=== PATIENT | male | born 1930 | race Caucasian/White ===

== ENCOUNTER 2019-01-13 20:03 | Inpatient (IN) | payer MEDICARE, BC ==
[2019-01-13 20:54] LABS: URINE BLOOD (Dip) POC 1+ (NEGATIVE); URINE GLUCOSE (Dip) POC Negative (NEGATIVE); URINE KETONES (Dip) POC Negative (NEGATIVE); URINE LEUKOCYTE EST (Dip) POC Negative (NEGATIVE); URINE NITRITE (Dip) POC Negative (NEGATIVE); URINE TOTAL PROTEIN POC Negative (NEGATIVE)
[2019-01-13 21:01] LABS: ADD MAN DIFF? NO
[2019-01-13 21:03] LABS: BASOPHILS % 0.6 % (0.0-2.0); EOSINOPHILS # 0.2 10^3/ul (0.0-0.5); EOSINOPHILS % 4.3 % (0.0-7.0); HEMATOCRIT 34.5 % (42.0-52.0); LYMPHOCYTES # 1.5 10^3/ul (0.8-2.9); LYMPHOCYTES % 29.8 % (15.0-51.0); MEAN CORPUSCULAR HEMOGLOBIN 27.2 pg (29.0-33.0); MEAN CORPUSCULAR HGB CONC 31.9 g/dl (32.0-37.0); MEAN CORPUSCULAR VOLUME 85.2 fl (82.0-101.0); MEAN PLATELET VOLUME 10.5 fl (7.4-10.4); MONOCYTE # 0.6 10^3/ul (0.3-0.9); MONOCYTES % 11.9 % (0.0-11.0); NEUTROPHIL # 2.6 10^3/ul (1.6-7.5); NEUTROPHILS % 53.2 % (39.0-77.0); PLATELET COUNT 128 10^3/UL (140-415); RED BLOOD COUNT 4.05 10^6/ul (4.70-6.10); RED CELL DISTRIBUTION WIDTH 13.8 % (11.5-14.5)
[2019-01-13 21:03] LABS: WHITE BLOOD COUNT 4.9 10^3/ul (4.8-10.8)
[2019-01-13 21:21] LABS: ALANINE AMINOTRANSFERASE 23 IU/L (13-69); ALBUMIN 4.4 g/dl (3.3-4.9); ALBUMIN/GLOBULIN RATIO 1.57; ALKALINE PHOSPHATASE 39 IU/L (42-121); ANION GAP 10 (5-13); ASPARTATE AMINO TRANSFERASE 25 IU/L (15-46); BLOOD UREA NITROGEN 28 mg/dl (7-20); CARBON DIOXIDE 30 mmol/L (21-31); CHLORIDE 103 mmol/L (97-110); CREATININE 1.15 mg/dl (0.61-1.24); GLUCOSE 115 mg/dl (70-220); LIPASE 51 U/L (23-300); POTASSIUM 3.6 mmol/L (3.5-5.1); SODIUM 143 mmol/L (135-144); TOTAL PROTEIN 7.2 g/dl (6.1-8.1)
[2019-01-13] MEDS: hydrALAzine 20 MG INJ IV (22:20)
[2019-01-13 23:27] LABS: PROSTATE SPECIFIC ANTIGEN 83.3 ng/ml (0.0-4.0)
[2019-01-14] MEDS ORDERED: HYDROCODONE/APAP (5/325) TAB PO ×2 (01:00)
[2019-01-14] MEDS ORDERED: ALBUTEROL/IPRATROPIUM (NEB) 3 ML AMP HHN (01:00)
[2019-01-14] MEDS ORDERED: NACL 0.9% 3 ML SYG IV (01:00)
[2019-01-14] MEDS ORDERED: ACETAMINOPHEN 325 MG TAB PO (01:00)
[2019-01-14] MEDS ORDERED: ONDANSETRON 4 MG INJ IV (01:00)
[2019-01-14 05:45] LABS: ADD MAN DIFF? NO
[2019-01-14 05:50] LABS: BASOPHILS % 0.4 % (0.0-2.0); EOSINOPHILS # 0.2 10^3/ul (0.0-0.5); EOSINOPHILS % 3.3 % (0.0-7.0); HEMATOCRIT 33.6 % (42.0-52.0); HEMOGLOBIN 10.8 g/dl (14.0-18.0); LYMPHOCYTES # 1.1 10^3/ul (0.8-2.9); LYMPHOCYTES % 22.7 % (15.0-51.0); MEAN CORPUSCULAR HEMOGLOBIN 27.1 pg (29.0-33.0); MEAN CORPUSCULAR HGB CONC 32.1 g/dl (32.0-37.0); MEAN CORPUSCULAR VOLUME 84.2 fl (82.0-101.0); MEAN PLATELET VOLUME 11.7 fl (7.4-10.4); MONOCYTE # 0.6 10^3/ul (0.3-0.9); MONOCYTES % 12.4 % (0.0-11.0); NEUTROPHILS % 60.8 % (39.0-77.0); PLATELET COUNT 137 10^3/UL (140-415); POSITIVE DIFF @See below; RED BLOOD COUNT 3.99 10^6/ul (4.70-6.10); RED CELL DISTRIBUTION WIDTH 13.8 % (11.5-14.5)
[2019-01-14 05:50] LABS: WHITE BLOOD COUNT 4.9 10^3/ul (4.8-10.8)
[2019-01-14 06:06] LABS: ALANINE AMINOTRANSFERASE 22 IU/L (13-69); ALBUMIN 3.7 g/dl (3.3-4.9); ALBUMIN/GLOBULIN RATIO 1.42; ALKALINE PHOSPHATASE 34 IU/L (42-121); ANION GAP 8 (5-13); ASPARTATE AMINO TRANSFERASE 19 IU/L (15-46); BILIRUBIN,INDIRECT 0.9 mg/dl (0-1.1); BILIRUBIN,TOTAL 0.9 mg/dl (0.2-1.3); BLOOD UREA NITROGEN 26 mg/dl (7-20); CALCIUM 9.9 mg/dl (8.4-10.2); CARBON DIOXIDE 30 mmol/L (21-31); CHLORIDE 107 mmol/L (97-110); CREATININE 0.88 mg/dl (0.61-1.24); GLUCOSE 109 mg/dl (70-220); MAGNESIUM 1.6 mg/dl (1.7-2.5); PHOSPHORUS 4.7 mg/dl (2.5-4.9); POTASSIUM 3.3 mmol/L (3.5-5.1); SODIUM 145 mmol/L (135-144); TOTAL PROTEIN 6.3 g/dl (6.1-8.1)
[2019-01-14] MEDS: POTASSIUM CHLORIDE (SR) 20 MEQ TAB PO (08:09)
[2019-01-14] MEDS: FINASTERIDE 5 MG TAB PO (08:10)
[2019-01-14] MEDS: FUROSEMIDE 40 MG TAB PO (08:11)
[2019-01-14] MEDS: TIMOLOL 0.5% 5 ML OPH BOTH EYES ×2 (08:12→20:13)
[2019-01-14] MEDS: LOSARTAN 50 MG TAB PO (08:12)
[2019-01-14] MEDS: AMLODIPINE 5 MG TAB PO ×2 (10:15→20:14)
[2019-01-14] MEDS: MAGNESIUM SULFATE 2 GM/50 ML 50 ML IVPB (12:50)
[2019-01-14] MEDS: hydrALAzine 20 MG INJ IV ×2 (14:46→20:14)
[2019-01-14] MEDS: TAMSULOSIN (SR) 0.4 MG CAP PO (20:13)
[2019-01-14] MEDS: LATANOPROST 0.005% 2.5 ML OPH BOTH EYES (20:22)
[2019-01-15 05:40] LABS: ADD MAN DIFF? NO
[2019-01-15 05:45] LABS: WHITE BLOOD COUNT 5.2 10^3/ul (4.8-10.8)
[2019-01-15 05:45] LABS: BASOPHILS % 0.2 % (0.0-2.0); EOSINOPHILS # 0.2 10^3/ul (0.0-0.5); EOSINOPHILS % 3.9 % (0.0-7.0); HEMATOCRIT 34.7 % (42.0-52.0); HEMOGLOBIN 11.2 g/dl (14.0-18.0); LYMPHOCYTES # 1.3 10^3/ul (0.8-2.9); LYMPHOCYTES % 24.4 % (15.0-51.0); MEAN CORPUSCULAR HEMOGLOBIN 27.1 pg (29.0-33.0); MEAN CORPUSCULAR HGB CONC 32.3 g/dl (32.0-37.0); MEAN PLATELET VOLUME 11.9 fl (7.4-10.4); MONOCYTE # 0.6 10^3/ul (0.3-0.9); MONOCYTES % 10.9 % (0.0-11.0); NEUTROPHIL # 3.1 10^3/ul (1.6-7.5); NEUTROPHILS % 60.4 % (39.0-77.0); PLATELET COUNT 134 10^3/UL (140-415); RED BLOOD COUNT 4.13 10^6/ul (4.70-6.10)
[2019-01-15 06:05] LABS: ANION GAP 9 (5-13); BLOOD UREA NITROGEN 27 mg/dl (7-20); CALCIUM 9.9 mg/dl (8.4-10.2); CARBON DIOXIDE 29 mmol/L (21-31); CHLORIDE 104 mmol/L (97-110); CREATININE 0.76 mg/dl (0.61-1.24); GLUCOSE 128 mg/dl (70-220); MAGNESIUM 1.8 mg/dl (1.7-2.5); PHOSPHORUS 4.2 mg/dl (2.5-4.9); POTASSIUM 3.6 mmol/L (3.5-5.1); SODIUM 142 mmol/L (135-144)
[2019-01-15] MEDS: TIMOLOL 0.5% 5 ML OPH BOTH EYES ×2 (08:48→20:02)
[2019-01-15] MEDS: BRIMONIDINE 0.15% 5 ML OPH BOTH EYES ×2 (08:51→16:43)
[2019-01-15] MEDS: FUROSEMIDE 40 MG TAB PO (08:52)
[2019-01-15] MEDS: AMLODIPINE 5 MG TAB PO ×2 (08:53→20:03)
[2019-01-15] MEDS: FINASTERIDE 5 MG TAB PO (08:53)
[2019-01-15] MEDS: LOSARTAN 50 MG TAB PO (08:54)
[2019-01-15] MEDS: TAMSULOSIN (SR) 0.4 MG CAP PO (20:03)
[2019-01-15] MEDS: LATANOPROST 0.005% 2.5 ML OPH BOTH EYES (20:07)
== END 2019-01-15 20:27 | disposition home or self-care (01) | DRG 723 ==
LOC: 2NE 22:44 → E/R 20:03
DX: C61 Malignant neoplasm of prostate (principal); N13.2 Hydronephrosis with renal and ureteral calculous obstruction; N13.8 Other obstructive and reflux uropathy; E83.42 Hypomagnesemia; N40.1 Benign prostatic hyperplasia with lower urinary tract symptoms; I10 Essential (primary) hypertension; E78.5 Hyperlipidemia, unspecified; I16.0 Hypertensive urgency; M19.90 Unspecified osteoarthritis, unspecified site; E87.6 Hypokalemia; R97.21 Rising PSA following treatment for malignant neoplasm of prostate
CPT/HCPCS: 36415; 74176; 76705; 80048; 80053; 81003; 83690; 83735; 84100; 84153; 84154; 85025; 87086; 93005; 96374; 97116; 97161; 97530; 99285-25

== ENCOUNTER 2019-02-26 12:07 | Inpatient (IN) | payer MEDICARE, BC ==
[2019-02-26] MEDS: CEFTRIAXONE 1 GM/50 ML (PMX) 50 ML IVPB ×2 (12:46→16:33)
[2019-02-26] MEDS: SODIUM CHLORIDE 0.9% 1L BAG IV* (12:46)
[2019-02-26] MEDS: IBUPROFEN 600 MG TAB PO (12:47)
[2019-02-26] MEDS ORDERED: DOCUSATE SODIUM 100 MG CAP PO (15:30)
[2019-02-26] MEDS ORDERED: ONDANSETRON 4 MG INJ IV (15:30)
[2019-02-26] MEDS ORDERED: ZOLPIDEM 5 MG TAB PO (15:30)
[2019-02-26] MEDS ORDERED: NACL 0.9% 3 ML SYG IV (15:30)
[2019-02-26] MEDS: SOD CHLORIDE 0.9% 1,000 ML IV (16:34)
[2019-02-26] MEDS: LATANOPROST 0.005% 2.5 ML OPH BOTH EYES (21:15)
[2019-02-26] MEDS: TIMOLOL 0.5% 5 ML OPH BOTH EYES (21:16)
[2019-02-26] MEDS: BRIMONIDINE 0.15% 5 ML OPH BOTH EYES (21:16)
[2019-02-27] MEDS: SOD CHLORIDE 0.9% 1,000 ML IV (01:56)
[2019-02-27] MEDS: BRIMONIDINE 0.15% 5 ML OPH BOTH EYES ×3 (06:07→21:20)
[2019-02-27] MEDS: TIMOLOL 0.5% 5 ML OPH BOTH EYES ×2 (09:00→21:19)
[2019-02-27] MEDS: BICALUTAMIDE 50 MG TAB PO (09:00)
[2019-02-27] MEDS: TAMSULOSIN (SR) 0.4 MG CAP PO (09:01)
[2019-02-27] MEDS: FINASTERIDE 5 MG TAB PO (09:01)
[2019-02-27] MEDS: CHOLECALCIFEROL 2,000 UNIT CAP PO (09:01)
[2019-02-27] MEDS: MAGNESIUM SULFATE 4 GM/100 ML 100 ML IVPB (12:09)
[2019-02-27] MEDS: BALSAM PERU/CASTOR OIL 60 GM TUBE TOP ×2 (12:10→21:19)
[2019-02-27] MEDS: CEFTRIAXONE 1 GM/50 ML (PMX) 50 ML IVPB (16:09)
[2019-02-27] MEDS: LATANOPROST 0.005% 2.5 ML OPH BOTH EYES (21:24)
[2019-02-28] MEDS ORDERED: VANCOMYCIN IV PER PHARMACY XX (04:00)
[2019-02-28] MEDS: VANCOMYCIN 1.25 GM/NS 250 ML 250 ML IVPB (04:45)
[2019-02-28] MEDS: BRIMONIDINE 0.15% 5 ML OPH BOTH EYES ×3 (06:03→21:27)
[2019-02-28] MEDS: FINASTERIDE 5 MG TAB PO (09:14)
[2019-02-28] MEDS: TAMSULOSIN (SR) 0.4 MG CAP PO (09:14)
[2019-02-28] MEDS: TIMOLOL 0.5% 5 ML OPH BOTH EYES ×2 (09:15→21:27)
[2019-02-28] MEDS: CHOLECALCIFEROL 2,000 UNIT CAP PO (09:15)
[2019-02-28] MEDS: BALSAM PERU/CASTOR OIL 60 GM TUBE TOP ×2 (09:16→21:27)
[2019-02-28] MEDS: BICALUTAMIDE 50 MG TAB PO (10:39)
[2019-02-28] MEDS: LATANOPROST 0.005% 2.5 ML OPH BOTH EYES (21:28)
[2019-03-01] MEDS: VANCOMYCIN 1 GM 250 ML IVPB (05:16)
[2019-03-01] MEDS: BRIMONIDINE 0.15% 5 ML OPH BOTH EYES ×3 (05:17→22:06)
[2019-03-01] MEDS: CHOLECALCIFEROL 2,000 UNIT CAP PO (08:11)
[2019-03-01] MEDS: TIMOLOL 0.5% 5 ML OPH BOTH EYES ×2 (08:12→22:06)
[2019-03-01] MEDS: FINASTERIDE 5 MG TAB PO (08:12)
[2019-03-01] MEDS: TAMSULOSIN (SR) 0.4 MG CAP PO (08:12)
[2019-03-01] MEDS: BICALUTAMIDE 50 MG TAB PO (08:13)
[2019-03-01] MEDS: BALSAM PERU/CASTOR OIL 60 GM TUBE TOP ×2 (08:18→22:06)
[2019-03-01] MEDS: MEGESTROL (40 MG/ML) 10ML CUP PO ×2 (09:00→22:10)
[2019-03-01] MEDS ORDERED: LOSARTAN 50 MG TAB PO (13:30)
[2019-03-01] MEDS: MULTIVITAMINS THERAPEUTIC TAB PO (14:29)
[2019-03-01] MEDS: LOSARTAN 25 MG TAB PO (14:31)
[2019-03-01] MEDS: LATANOPROST 0.005% 2.5 ML OPH BOTH EYES (21:00)
[2019-03-01] MEDS: hydrALAzine 20 MG INJ IV (21:51)
[2019-03-02] MEDS: hydrALAzine 20 MG INJ IV (02:12)
[2019-03-02] MEDS: morphine 2 MG INJ IV (02:53)
[2019-03-02] MEDS: VANCOMYCIN 1 GM 250 ML IVPB (05:34)
[2019-03-02] MEDS: BRIMONIDINE 0.15% 5 ML OPH BOTH EYES ×3 (07:05→22:27)
[2019-03-02] MEDS: LOSARTAN 25 MG TAB PO (09:49)
[2019-03-02] MEDS: CHOLECALCIFEROL 2,000 UNIT CAP PO (09:49)
[2019-03-02] MEDS: MEGESTROL (40 MG/ML) 10ML CUP PO ×2 (09:49→22:28)
[2019-03-02] MEDS: FINASTERIDE 5 MG TAB PO (09:49)
[2019-03-02] MEDS: MULTIVITAMINS THERAPEUTIC TAB PO (09:49)
[2019-03-02] MEDS: TAMSULOSIN (SR) 0.4 MG CAP PO ×2 (09:49→22:28)
[2019-03-02] MEDS: TIMOLOL 0.5% 5 ML OPH BOTH EYES ×2 (09:51→22:27)
[2019-03-02] MEDS: BICALUTAMIDE 50 MG TAB PO (09:51)
[2019-03-02] MEDS: BALSAM PERU/CASTOR OIL 60 GM TUBE TOP ×2 (09:52→22:35)
[2019-03-02] MEDS: LATANOPROST 0.005% 2.5 ML OPH BOTH EYES (21:00)
[2019-03-02] MEDS: HYDROCODONE/APAP (5/325) TAB PO (22:43)
[2019-03-03] MEDS: VANCOMYCIN 750 MG (PMX) 250 ML IVPB (05:45)
[2019-03-03] MEDS: BRIMONIDINE 0.15% 5 ML OPH BOTH EYES ×3 (05:46→23:41)
[2019-03-03] MEDS: TIMOLOL 0.5% 5 ML OPH BOTH EYES ×2 (09:23→23:40)
[2019-03-03] MEDS: MEGESTROL (40 MG/ML) 10ML CUP PO ×2 (09:23→23:39)
[2019-03-03] MEDS: MULTIVITAMINS THERAPEUTIC TAB PO (09:24)
[2019-03-03] MEDS: LOSARTAN 25 MG TAB PO (09:24)
[2019-03-03] MEDS: FINASTERIDE 5 MG TAB PO (09:24)
[2019-03-03] MEDS: CHOLECALCIFEROL 2,000 UNIT CAP PO (09:24)
[2019-03-03] MEDS: TAMSULOSIN (SR) 0.4 MG CAP PO ×2 (09:25→23:38)
[2019-03-03] MEDS: BALSAM PERU/CASTOR OIL 60 GM TUBE TOP ×2 (09:25→23:42)
[2019-03-03] MEDS: BICALUTAMIDE 50 MG TAB PO (09:29)
[2019-03-03] MEDS: RIFAMPIN 300 MG CAP PO (16:48)
[2019-03-03] MEDS: MUPIROCIN 2% 15 GM CR TOP ×2 (16:49→23:40)
[2019-03-03] MEDS: ACETAMINOPHEN 325 MG TAB PO (18:25)
[2019-03-03] MEDS: LATANOPROST 0.005% 2.5 ML OPH BOTH EYES (21:00)
[2019-03-03] MEDS: HYDROCODONE/APAP (5/325) TAB PO (23:39)
[2019-03-04] MEDS: SULFAMETHOXAZOLE IVPB ×4 (00:32→22:47)
[2019-03-04] MEDS: TRIMETHOPRIM IVPB ×4 (00:32→22:47)
[2019-03-04] MEDS: DEXTROSE IVPB ×4 (00:32→22:47)
[2019-03-04] MEDS: BRIMONIDINE 0.15% 5 ML OPH BOTH EYES ×3 (06:23→21:45)
[2019-03-04] MEDS: MEGESTROL (40 MG/ML) 10ML CUP PO ×2 (09:06→21:47)
[2019-03-04] MEDS: MULTIVITAMINS THERAPEUTIC TAB PO (09:06)
[2019-03-04] MEDS: TAMSULOSIN (SR) 0.4 MG CAP PO ×2 (09:06→21:44)
[2019-03-04] MEDS: LOSARTAN 25 MG TAB PO (09:06)
[2019-03-04] MEDS: CHOLECALCIFEROL 2,000 UNIT CAP PO (09:06)
[2019-03-04] MEDS: RIFAMPIN 300 MG CAP PO (09:07)
[2019-03-04] MEDS: DOCUSATE SODIUM 100 MG CAP PO (09:07)
[2019-03-04] MEDS: FINASTERIDE 5 MG TAB PO (09:08)
[2019-03-04] MEDS: TIMOLOL 0.5% 5 ML OPH BOTH EYES ×2 (09:08→21:45)
[2019-03-04] MEDS: MUPIROCIN 2% 15 GM CR TOP ×2 (09:09→21:45)
[2019-03-04] MEDS: BALSAM PERU/CASTOR OIL 60 GM TUBE TOP ×2 (09:09→21:46)
[2019-03-04] MEDS: ENOXAPARIN 30 MG/0.3 ML SYG SC (09:12)
[2019-03-04] MEDS: CEFEPIME 1GM/50 ML (PMX) 50 ML IVPB ×2 (14:19→21:45)
[2019-03-04] MEDS: ACETAMINOPHEN 325 MG TAB PO (14:44)
[2019-03-04] MEDS: HYDROCODONE/APAP (5/325) TAB PO (18:08)
[2019-03-04] MEDS: LATANOPROST 0.005% 2.5 ML OPH BOTH EYES ×2 (21:00→22:47)
[2019-03-05] MEDS: TRIMETHOPRIM IVPB ×3 (06:17→22:21)
[2019-03-05] MEDS: HYDROCODONE/APAP (5/325) TAB PO (06:17)
[2019-03-05] MEDS: SULFAMETHOXAZOLE IVPB ×3 (06:17→22:21)
[2019-03-05] MEDS: DEXTROSE IVPB ×3 (06:17→22:21)
[2019-03-05] MEDS: BRIMONIDINE 0.15% 5 ML OPH BOTH EYES ×3 (06:18→22:20)
[2019-03-05] MEDS: CEFEPIME 1GM/50 ML (PMX) 50 ML IVPB ×2 (09:05→19:56)
[2019-03-05] MEDS: CHOLECALCIFEROL 2,000 UNIT CAP PO (09:07)
[2019-03-05] MEDS: FINASTERIDE 5 MG TAB PO (09:07)
[2019-03-05] MEDS: LOSARTAN 25 MG TAB PO (09:07)
[2019-03-05] MEDS: DOCUSATE SODIUM 100 MG CAP PO (09:07)
[2019-03-05] MEDS: TAMSULOSIN (SR) 0.4 MG CAP PO ×2 (09:07→19:59)
[2019-03-05] MEDS: MULTIVITAMINS THERAPEUTIC TAB PO (09:07)
[2019-03-05] MEDS: RIFAMPIN 300 MG CAP PO (09:08)
[2019-03-05] MEDS: MEGESTROL (40 MG/ML) 10ML CUP PO ×2 (09:08→19:57)
[2019-03-05] MEDS: ENOXAPARIN 40 MG/0.4 ML SYG SC (09:10)
[2019-03-05] MEDS: MUPIROCIN 2% 15 GM CR TOP ×2 (09:11→19:59)
[2019-03-05] MEDS: TIMOLOL 0.5% 5 ML OPH BOTH EYES ×2 (09:11→19:58)
[2019-03-05] MEDS: BALSAM PERU/CASTOR OIL 60 GM TUBE TOP ×2 (09:12→20:00)
[2019-03-05] MEDS: MAGNESIUM HYDROXIDE 30ML CUP PO ×2 (16:16→19:57)
[2019-03-05] MEDS: BISACODYL (EC) 5 MG TAB PO (19:57)
[2019-03-05] MEDS: LATANOPROST 0.005% 2.5 ML OPH BOTH EYES (19:59)
[2019-03-06] MEDS: DEXTROSE IVPB ×3 (05:51→22:33)
[2019-03-06] MEDS: BRIMONIDINE 0.15% 5 ML OPH BOTH EYES ×3 (05:51→22:14)
[2019-03-06] MEDS: TRIMETHOPRIM IVPB ×3 (05:51→22:33)
[2019-03-06] MEDS: SULFAMETHOXAZOLE IVPB ×3 (05:51→22:33)
[2019-03-06] MEDS: HYDROCODONE/APAP (5/325) TAB PO (05:56)
[2019-03-06] MEDS: MAGNESIUM HYDROXIDE 30ML CUP PO ×2 (09:06→21:00)
[2019-03-06] MEDS: CEFEPIME 1GM/50 ML (PMX) 50 ML IVPB ×2 (09:06→22:13)
[2019-03-06] MEDS: MEGESTROL (40 MG/ML) 10ML CUP PO ×2 (09:07→22:13)
[2019-03-06] MEDS: BALSAM PERU/CASTOR OIL 60 GM TUBE TOP ×2 (09:07→22:13)
[2019-03-06] MEDS: MUPIROCIN 2% 15 GM CR TOP ×2 (09:07→22:13)
[2019-03-06] MEDS: CHOLECALCIFEROL 2,000 UNIT CAP PO (09:08)
[2019-03-06] MEDS: FINASTERIDE 5 MG TAB PO (09:08)
[2019-03-06] MEDS: LOSARTAN 25 MG TAB PO (09:08)
[2019-03-06] MEDS: RIFAMPIN 300 MG CAP PO (09:08)
[2019-03-06] MEDS: TAMSULOSIN (SR) 0.4 MG CAP PO ×2 (09:08→22:12)
[2019-03-06] MEDS: MULTIVITAMINS THERAPEUTIC TAB PO (09:09)
[2019-03-06] MEDS: TIMOLOL 0.5% 5 ML OPH BOTH EYES ×2 (09:14→22:12)
[2019-03-06] MEDS: ENOXAPARIN 40 MG/0.4 ML SYG SC (09:17)
[2019-03-06] MEDS: LATANOPROST 0.005% 2.5 ML OPH BOTH EYES (22:13)
[2019-03-07] MEDS: SULFAMETHOXAZOLE IVPB ×2 (05:27→14:36)
[2019-03-07] MEDS: TRIMETHOPRIM IVPB ×2 (05:27→14:36)
[2019-03-07] MEDS: DEXTROSE IVPB ×2 (05:27→14:36)
[2019-03-07] MEDS: BRIMONIDINE 0.15% 5 ML OPH BOTH EYES ×2 (05:27→14:36)
[2019-03-07] MEDS: HYDROCODONE/APAP (5/325) TAB PO (05:27)
[2019-03-07] MEDS: CHOLECALCIFEROL 2,000 UNIT CAP PO (09:08)
[2019-03-07] MEDS: TAMSULOSIN (SR) 0.4 MG CAP PO (09:08)
[2019-03-07] MEDS: MEGESTROL (40 MG/ML) 10ML CUP PO (09:08)
[2019-03-07] MEDS: RIFAMPIN 300 MG CAP PO (09:08)
[2019-03-07] MEDS: MAGNESIUM HYDROXIDE 30ML CUP PO (09:08)
[2019-03-07] MEDS: LOSARTAN 25 MG TAB PO (09:09)
[2019-03-07] MEDS: FINASTERIDE 5 MG TAB PO (09:09)
[2019-03-07] MEDS: MULTIVITAMINS THERAPEUTIC TAB PO (09:09)
[2019-03-07] MEDS: CEFEPIME 1GM/50 ML (PMX) 50 ML IVPB (09:09)
[2019-03-07] MEDS: MUPIROCIN 2% 15 GM CR TOP (09:10)
[2019-03-07] MEDS: BALSAM PERU/CASTOR OIL 60 GM TUBE TOP (09:10)
[2019-03-07] MEDS: TIMOLOL 0.5% 5 ML OPH BOTH EYES (09:10)
[2019-03-07] MEDS: ENOXAPARIN 40 MG/0.4 ML SYG SC (09:17)
[2019-03-10] MEDS ORDERED: BICALUTAMIDE 50 MG TAB PO (09:00)
== END 2019-03-07 18:00 | disposition home health service (06) | DRG 871 ==
LOC: E/R 12:07 → 2NE 15:32
DX: A41.02 Sepsis due to Methicillin resistant Staphylococcus aureus (principal); L89.153 Pressure ulcer of sacral region, stage 3; J18.9 Pneumonia, unspecified organism; E87.1 Hypo-osmolality and hyponatremia; N39.0 Urinary tract infection, site not specified; N41.9 Inflammatory disease of prostate, unspecified; N40.0 Benign prostatic hyperplasia without lower urinary tract symptoms; E83.42 Hypomagnesemia; I10 Essential (primary) hypertension; H40.9 Unspecified glaucoma; C61 Malignant neoplasm of prostate; K59.00 Constipation, unspecified; D64.9 Anemia, unspecified
CPT/HCPCS: 36415; 71045; 80048; 80053; 80202; 81001; 83036; 83605; 83690; 83735; 84100; 84484; 85025; 85610; 85730; 87040-91; 87081; 87086; 93005; 93306; 96374; 97110; 97116; 97162; 97530; 99285-25